=== PATIENT | male | born 1965 | race Caucasian/White ===

== ENCOUNTER 2016-03-12 19:28 | Inpatient (IN) | payer OTHER ==
[2016-03-12 19:37] VITALS: BMI 32.3
[2016-03-12] MEDS ORDERED: ASPIRIN 81 MG CHEWABLE TABLETS PO ONE (20:34)
--- NOTE | 2016-03-12 20:34 | PDOC ---
History of Present Illness <Kem Verduzco - Last Filed: 03/12/16 20:40> - General History Source: Patient Exam Limitations: No Limitations <Pratima Cruz - Last Filed: 03/12/16 22:34> - General Chief Complaint: Chest Pain Stated Complaint: CHEST PAIN - History of Present Illness Initial Comments: 03/12/16 20:40 The patient is a 50 year old male with significant past medical history of [place], CAD, s/p cardiac stents x2 (4 years ago), and hyperlipidemia who presents to the ED with nonradiating left-sided chest pain that began around 1:30pm today. Patient describes chest pain as a pressure sensation, intermittent lasting about 5-10 minutes, with no exacerbating/alleviating factors. He also has complaints of difficulty breathing. Patient was at work earlier today when he developed left-sided chest pain. He states he did not take any medications for his symptoms. He denies diaphoresis, palpitations, jaw pain, shoulder pain, arm pain, nausea, and vomiting. The patient denies fever, chills, cough, abdominal pain, and diarrhea. 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 Current smoker (half pack per day) Past Surgical History: s/p cardiac stents x2 (4 years ago) PCP: Dr. Sotero Powell Cardio: Dr. Kem Goff (Pratima Cruz) Past History - Past Medical History Cardiac Disorders: Yes ([place]) Hypercholesterolemia: Yes - Surgical History Cardiac Surgery: Yes (STENTS) - Psycho/Social/Smoking Cessation Hx Suicidal Ideation: No Smoking History: Current every day smoker Number of Cigarettes Smoked Daily: 10 Information on smoking cessation initiated: No Hx Alcohol Use: No Drug/Substance Use Hx: No <Kem Verduzco - Last Filed: 03/12/16 20:40> <Pratima Cruz - Last Filed: 03/12/16 22:34> - Past Medical History Allergies/Adverse Reactions: Allergies Allergy/AdvReac Type Severity Reaction Status Date / Time No Known Allergies Allergy Verified 03/12/16 19:34 Home Medications: Ambulatory Orders Aspirin [ASA -] 81 mg PO DAILY 03/12/16 Ezetimibe [Zetia] 10 mg PO DAILY 03/12/16 Review of Systems <Kem Verduzco - Last Filed: 03/12/16 20:40> - Review of Systems Able to Perform ROS?: Yes <Pratima Cruz - Last Filed: 03/12/16 22:34> - Review of Systems Comments:: 03/12/16 20:41 +left-sided chest pain, SOB Absent: fever, chills, cough, diaphoresis, palpitations, jaw pain, shoulder pain , arm pain, abdominal pain, nausea, vomiting, and diarrhea (Pratima Cruz) *Physical Exam <Kem Verduzco - Last Filed: 03/12/16 20:40> <Pratima Cruz - Last Filed: 03/12/16 22:34> - Vital Signs Last Vital Signs Temp Pulse Resp BP Pulse Ox 97.5 F L 87 14 146/115 95 03/12/16 19:35 03/12/16 19:35 03/12/16 19:35 03/12/16 19:35 03/12/16 19:35 - Physical Exam Comments: 03/12/16 20:41 GENERAL: Well developed, well nourished. Awake and alert. No acute distress. HEENT: Normocephalic, atraumatic. PERRLA, EOMI. No conjunctival pallor. Sclera are non- icteric. Moist mucous membranes. Oropharynx is clear. NECK: Supple. Full ROM. No JVD. Carotid pulses 2+ and symmetric, without bruits. No thyromegaly. No lymphadenopathy. CARDIOVASCULAR: Regular rate and rhythm. No murmurs, rubs, or gallops. PULMONARY: No evidence of respiratory distress. Lungs clear to auscultation bilaterally. No wheezing, rales or rhonchi. ABDOMINAL: Soft. Non-tender. Non-distended. No rebound or guarding. No organomegaly. Normoactive bowel sounds. MUSCULOSKELETAL Normal range of motion at all joints. No bony deformities or tenderness. No CVA tenderness. EXTREMITIES: No cyanosis. No clubbing. No edema. No calf tenderness. SKIN: Warm and dry. Normal capillary refill. No rashes. No jaundice. NEUROLOGICAL: Alert, awake, appropriate. Cranial nerves 2-12 intact. Moving all extremities. No focal neurological deficits. PSYCHIATRIC: Cooperative. Good eye contact. Appropriate mood and affect. (Pratima Cruz) Heart Score/ECG Review <Kem Verduzco - Last Filed: 03/12/16 20:40> <Pratima Cruz - Last Filed: 03/12/16 22:34> - ECG Impressions Comment:: 03/12/16 20:41 NSR @88bpm Nonspecific ST and T wave abnormality Abnormal ECG (Pratima Cruz) ED Treatment Course - LABORATORY CBC & Chemistry Diagram: 03/12/16 20:40 03/12/16 20:40 <Pratima Cruz - Last Filed: 03/12/16 22:34> - Medications Given in the ED: ED Medications Discontinued Medications Generic Name Dose Route Start Last Admin Trade Name Johnson PRN Reason Stop Dose Admin Aspirin 162 mg 03/12/16 20:34 03/12/16 20:46 Asa - PO 03/12/16 20:35 162 mg ONCE ONE Administration Metoprolol Succinate 50 mg 03/12/16 20:44 03/12/16 20:54 Toprol Xl - PO 03/12/16 20:45 50 mg ONCE ONE Administration Medical Decision Making <Kem Verduzco - Last Filed: 03/12/16 20:40> <Pratima Cruz - Last Filed: 03/12/16 22:34> - Medical Decision Making 03/12/16 20:31 Patient's case was discussed with Dr. Mitchell Mcgill at 20:31 (Pratima Cruz) *DC/Admit/Observation/Transfer - Discharge Dispostion Admit: Yes <Kem Verduzco - Last Filed: 03/12/16 20:40> <Pratima Cruz - Last Filed: 03/12/16 22:34> Diagnosis at time of Disposition: ACS (acute coronary syndrome) - Discharge Dispostion Condition at time of disposition: Stable - Referrals - Attestations Scribe Attestion: 03/12/16 20:42 Documentation prepared by Pratima Cruz, acting as medical assistant per diem for eKm Verduzco MD (Pratima Cruz)
[2016-03-12] MEDS ORDERED: METOPROLOL SUCCINATE 50 MG TAB.SR.24H (FP) PO ONE (20:44)
[2016-03-12] MEDS ORDERED: SODIUM CHLORIDE 1,000 ML IV SCH (20:45)
[2016-03-12] MEDS ORDERED: ASPIRIN 81 MG CHEWABLE TABLETS ONE (20:45)
[2016-03-12] MEDS ORDERED: METOPROLOL SUCCINATE 50 MG TAB.SR.24H (FP) ONE (20:46)
[2016-03-12] MEDS ORDERED: ACETAMINOPHEN 325 MG TABLET (FP) PO PRN (20:46)
[2016-03-12 20:49] LABS: BASOPHIL 1.9 % (0-2.0); EOSINOPHIL 3.9 % (0-4.5); MCH 29.3 pg (25.7-33.7); MEAN CELL VOLUME 86.2 fl (80-96); MEAN PLT VOLUME 8.8 fl (7.5-11.1); NEUTROPHILS 64.9 % (42.8-82.8); PLATELET COUNT 227 K/MM3 (134-434); WHITE BLOOD COUNT 9.2 K/mm3 (4.0-10.0)
[2016-03-12 20:50] LABS: URINE APPEARANCE CLEAR; URINE BILIRUBIN NEGATIVE (NEGATIVE); URINE COLOR LTYELLOW; URINE GLUCOSE (UA) NEGATIVE (NEGATIVE); URINE KETONE NEGATIVE (NEGATIVE); URINE NITRITE NEGATIVE (NEGATIVE); URINE PROTEIN NEGATIVE (NEGATIVE); URINE UROBILINOGEN NEGATIVE E.U./dl (0.2-1.0)
[2016-03-12 20:52] LABS: URINE BLOOD 1+ (NEGATIVE); URINE LEUK ESTERASE TRACE (NEGATIVE)
[2016-03-12 20:53] LABS: URINE MUCUS RARE; URINE RBC 1 /hpf (0-3); URINE WBC 18 /hpf (3-5)
[2016-03-12 21:00] LABS: INR 0.93 (0.82-1.09); PROTHROMBIN TIME (PATIENT) 10.2 SEC (9.98-11.88)
[2016-03-12 21:27] LABS: ALBUMIN 3.8 g/dl (3.4-5.0); ANION GAP 7 (8-16); BILIRUBIN,TOTAL 0.4 mg/dL (0.2-1.0); CALCIUM 8.4 mg/dL (8.5-10.1); CHOLESTEROL 245 mg/dL (50-200); CO2 26 mmol/L (21-32); CREATININE 0.9 mg/dL (0.7-1.3); GLUCOSE,RANDOM 96 mg/dL (74-106); LDL CHOLESTEROL (ONLY SJRH) 170 mg/dL (5-100); MAGNESIUM 2.1 mg/dL (1.8-2.4); SGOT/AST 19 U/L (15-37); SGPT/ALT 49 U/L (12-78); TOT PROT 6.9 g/dl (6.4-8.2)
[2016-03-12 21:30] LABS: ALK PHOS 111 U/L (45-117); TROPONIN I < 0.02 ng/ml (0.00-0.05)
[2016-03-13 04:58] LABS: TROPONIN I < 0.02 ng/ml (0.00-0.05)
[2016-03-13 08:44] LABS: TROPONIN I < 0.02 ng/ml (0.00-0.05)
[2016-03-13] MEDS ORDERED: ASPIRIN COATED 81 MG TABLET.EC PO SCH (10:00)
[2016-03-13] MEDS ORDERED: EZETIMIBE 10 MG TABLET (FP) PO SCH (10:00)
--- NOTE | 2016-03-13 11:03 | HP ---
Admitting History and Physical - Admission Chief Complaint: came in with chest heaviness while working History of Present Illness: 03/12/16 20:40 The patient is a 50 year old male with significant past medical history of [place], CAD, s/p cardiac stents x2 (4 years ago), and hyperlipidemia who presents to the ED with nonradiating left-sided chest pain that began around 1:30pm today. Patient describes chest pain as a pressure sensation, intermittent lasting about 5-10 minutes, with no exacerbating/alleviating factors. He also has complaints of difficulty breathing. Patient was at work earlier today when he developed left-sided chest pain. He states he did not take any medications for his symptoms. He denies diaphoresis, palpitations, jaw pain, shoulder pain, arm pain, nausea, and vomiting. The patient denies fever, chills, cough, abdominal pain, and diarrhea. 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 Sotero Powell Cardio: Dr. Kem Goff in ER EKG no st t wave changes,CE 3 sets negative, high BP got metoprolol succinate one dose patient was on BB but stopped it bc of possible sexual dysfunction and was on crestor was stopped sec to aches and myalgias but he has been able to tolerate lipitor in the past veronica restart liptior given lipd profile and will start norvasc 5mg daily hd a recent stress test with cardioligist which was good seen by cardioligist and adivsed to stop smoking restart lipitor and start norvasc History Source: Patient - Past Medical History Cardiovascular: Yes: CAD, HTN, Hyperlipdemia, MD - Smoking History Smoking history: Current every day smoker Aproximately how many cigarettes per day: 10 - Alcohol/Substance Use Hx Alcohol Use: No Home Medications - Allergies Allergies/Adverse Reactions: Allergies Allergy/AdvReac Type Severity Reaction Status Date / Time No Known Allergies Allergy Verified 03/12/16 19:34 - Home Medications Home Medications: Ambulatory Orders Aspirin [ASA -] 81 mg PO DAILY 03/12/16 Ezetimibe [Zetia] 10 mg PO DAILY 03/12/16 Review of Systems - Review of Systems HENT: reports: No Symptoms Neck: reports: No Symptoms Cardiovascular: reports: No Symptoms Respiratory: reports: No Symptoms Gastrointestinal: reports: No Symptoms Physical Examination Vital Signs: Vital Signs Temperature 97.7 F 03/13/16 09:02 Pulse Rate 75 03/13/16 09:02 Respiratory Rate 18 03/13/16 09:02 Blood Pressure 139/90 03/13/16 09:02 O2 Sat by Pulse Oximetry (%) 97 03/13/16 09:02 Constitutional: Yes: Calm Neck: Yes: Trachea Midline Cardiovascular: Yes: Regular Rate and Rhythm, S1, S2 Respiratory: Yes: CTA Bilaterally Gastrointestinal: Yes: Normal Bowel Sounds, Soft Edema: No Neurological: Yes: Alert, Oriented Labs: CBC, BMP 03/12/16 20:40 03/12/16 20:40 Imaging - Results EKG: Report Reviewed, Image Reviewed Problem List - Problems (1) ACS (acute coronary syndrome) Assessment/Plan: CE 3 sets negative restart lipitor norvasc for BP control no BB bc of side effects asa seen by cardidilogist ok for discharge Code(s): I24.9 - ACUTE ISCHEMIC HEART DISEASE, UNSPECIFIED (2) Hyperlipidemia Assessment/Plan: statin and zetia Code(s): E78.5 - HYPERLIPIDEMIA, UNSPECIFIED
--- NOTE | 2016-03-13 11:12 | DS ---
Physical Examination Vital Signs: Vital Signs Temperature 97.7 F 03/13/16 09:02 Pulse Rate 75 03/13/16 09:02 Respiratory Rate 18 03/13/16 09:02 Blood Pressure 139/90 03/13/16 09:02 O2 Sat by Pulse Oximetry (%) 97 03/13/16 09:02 Constitutional: Yes: Calm Neck: Yes: Trachea Midline Cardiovascular: Yes: Regular Rate and Rhythm, S1, S2 Respiratory: Yes: CTA Bilaterally Gastrointestinal: Yes: Normal Bowel Sounds, Soft Edema: No Neurological: Yes: Alert, Oriented Labs: CBC, BMP 03/12/16 20:40 03/12/16 20:40 Discharge Summary Reason For Visit: CHEST PAIN Current Active Problems ACS (acute coronary syndrome) (Acute) Hyperlipidemia (Acute) Hospital Course: Chief Complaint: came in with chest heaviness while working History of Present Illness: 03/12/16 20:40 The patient is a 50 year old male with significant past medical history of [place], CAD, s/p cardiac stents x2 (4 years ago), and hyperlipidemia who presents to the ED with nonradiating left-sided chest pain that began around 1:30pm today. Patient describes chest pain as a pressure sensation, intermittent lasting about 5-10 minutes, with no exacerbating/alleviating factors. He also has complaints of difficulty breathing. Patient was at work earlier today when he developed left-sided chest pain. He states he did not take any medications for his symptoms. He denies diaphoresis, palpitations, jaw pain, shoulder pain, arm pain, nausea, and vomiting. The patient denies fever, chills, cough, abdominal pain, and diarrhea. 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 Sotero Powell Cardio: Dr. 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
[2016-03-13 11:38] VITALS: BP 124/77; PULSE 72; TEMP 98.1
--- NOTE | 2016-03-13 12:49 | EKG ---
Test Reason : Blood Pressure : / mmHG Vent. Rate : 088 BPM Atrial Rate : 088 BPM P-R Int : 160 ms QRS Dur : 096 ms QT Int : 360 ms P-R-T Axes : 000 025 022 degrees QTc Int : 435 ms NORMAL SINUS RHYTHM NONSPECIFIC ST AND T WAVE ABNORMALITY ABNORMAL ECG NO PREVIOUS ECGS AVAILABLE Confirmed by LEE ANN HENRIQUEZ MD ([id number]) on 03/13/2016 12:49:12 PM Referred By: Confirmed By:LEE ANN HENRIQUEZ MD
[2016-03-13] MEDS ORDERED: ATORVASTATIN CA 40 MG TABLET (FP) PO SCH (22:00)
[2016-03-14] MEDS ORDERED: amLODIPine BESYLATE 5 MG TABLET (FP) PO SCH (10:00)
== END 2016-03-13 11:39 | disposition home or self-care (01) | DRG 313 ==
LOC: JER 19:28 → JERBED 20:39
PROVIDERS: ADMIT Family Medicine; ATTEND Family Medicine
DX: R07.9 Chest pain, unspecified (principal); I25.10 Atherosclerotic heart disease of native coronary artery without angina pectoris; I25.2 Old myocardial infarction; E78.5 Hyperlipidemia, unspecified; F17.210 Nicotine dependence, cigarettes, uncomplicated
CPT/HCPCS: 36415; 71020-TC; 80053; 80061; 81003; 81015; 82550; 83721; 83735; 84484; 85025; 85610; 93005; 93010; 99285-25

== ENCOUNTER 2018-05-01 14:59 | Observation (INO) | payer OTHER ==
--- NOTE | 2018-05-01 15:31 | PDOC ---
Rapid Medical Evaluation Time Seen by Provider: 05/01/18 15:30 Medical Evaluation: Allergies Allergy/AdvReac Type Severity Reaction Status Date / Time No Known Allergies Allergy Verified 03/12/16 19:34 05/01/18 15:30 I performed a brief in-person evaluation of this patient. Chief complaint: Vertigo, dizziness (ongoing), syncope (last week). Hx CAD s/p stents at [facility] 2013, HTN, HLD, current smoker. Sent by Dr. Powell for admission. I have ordered the following: EKG, cardiac labs, CXR, CT brain Patient will proceed to the ED for further evaluation. 05/01/18 15:32 Discharge Disposition - Diagnosis Dizziness - Referrals - Patient Instructions - Post Discharge Activity
[2018-05-01 15:34] VITALS: BMI 30.8
[2018-05-01 16:11] LABS: BASO % 0.6 % (0-2.0); EOS % 3.8 % (0-4.5); HEMATOCRIT 43.9 % (35.4-49); HEMOGLOBIN 15.3 GM/dL (11.7-16.9); LYMPH % 19.9 % (8-40); MCH 30.5 pg (25.7-33.7); MCHC 34.9 g/dl (32.0-35.9); MEAN CELL VOLUME 87.3 fl (80-96); MEAN PLT VOLUME 8.5 fl (7.5-11.1); MONO % 7.7 % (3.8-10.2); PLATELET COUNT 210 K/MM3 (134-434); RBC 5.02 M/mm3 (4.00-5.60); RDW 13.5 % (11.9-15.9)
[2018-05-01 16:44] LABS: INR 0.89 (0.83-1.09); PROTHROMBIN TIME (PATIENT) 10.5 SEC (9.7-13.0)
[2018-05-01 16:46] LABS: ALBUMIN 3.6 g/dl (3.4-5.0); ALK PHOS 95 U/L (45-117); ANION GAP 5 MMOL/L (8-16); BILIRUBIN,TOTAL 0.4 mg/dL (0.2-1); BLOOD UREA NITROGEN 24 mg/dL (7-18); CALCIUM 9.2 mg/dL (8.5-10.1); CHLORIDE 104 mmol/L (98-107); CO2 26 mmol/L (21-32); CREATININE 1.1 mg/dL (0.55-1.3); GLUCOSE,RANDOM 86 mg/dL (74-106); POTASSIUM 3.9 mmol/L (3.5-5.1); SGOT/AST 16 U/L (15-37); SGPT/ALT 49 U/L (13-61); SODIUM 136 mmol/L (136-145); TOT PROT 6.8 g/dl (6.4-8.2)
--- NOTE | 2018-05-01 19:09 | PDOC ---
History of Present Illness - General Chief Complaint: Lightheaded Stated Complaint: SEND BY PCP Time Seen by Provider: 05/01/18 15:30 - History of Present Illness Initial Comments: 05/01/18 19:08 Mr. Swain is a 52 yo male w/ pmh of HTN, HLD, Prior stents ([facility] 2013) on asa only, who presents for evaluation on advice of his PCP Dr. Powell. Patient reports he has had 1 month history of intermittent dizziness with occasional muscle cramping. Patient became concerned when he had a syncopal episode last week. Patient was instructed to present to ER for admission by PCP however patient has been unable to do so until now. He otherwise feels well at this time. Mr. Swain is a current smoker. The patient denies chest pain, shortness of breath, and headache. Denies fever, chills, nausea, vomit, diarrhea and constipation. Denies dysuria, frequency, urgency and hematuria. Past History - Past Medical History Allergies/Adverse Reactions: Allergies Allergy/AdvReac Type Severity Reaction Status Date / Time No Known Allergies Allergy Verified 05/01/18 15:34 Home Medications: Ambulatory Orders Aspirin [ASA -] 81 mg PO DAILY 03/12/16 Losartan/Hydrochlorothiazide [Losartan-Hctz 100-12.5 mg Tab] 1 each PO DAILY Metoprolol Succinate [Toprol Xl] 25 mg PO DAILY 05/01/18 Simvastatin [Zocor -] 40 mg PO DAILY 05/01/18 Cardiac Disorders: Yes ([place], 2 STENTS) COPD: No HTN: Yes Hypercholesterolemia: Yes - Surgical History Cardiac Surgery: Yes (STENTS) - Immunization History Immunization Up to Date: Yes - Suicide/Smoking/Psychosocial Hx Smoking History: Current every day smoker Have you smoked in the past 12 months: Yes Number of Cigarettes Smoked Daily: 10 Information on smoking cessation initiated: No Hx Alcohol Use: No Drug/Substance Use Hx: No Review of Systems - Review of Systems Comments:: 05/01/18 19:41 GENERAL/CONSTITUTIONAL: No fever or chills. No weakness. HEAD, EYES, EARS, NOSE AND THROAT: No change in vision. No ear pain or discharge. No sore throat. CARDIOVASCULAR: No chest pain or shortness of breath RESPIRATORY: No cough, wheezing, or hemoptysis. GASTROINTESTINAL: No nausea, vomiting, diarrhea or constipation. GENITOURINARY: No dysuria, frequency, or change in urination. MUSCULOSKELETAL: No joint or muscle swelling or pain. No neck or back pain. SKIN: No rash NEUROLOGIC: +Intermittent lightheaded "not right" feeling for 1 month. Patient reports he lost strength and almost passed out 1 time 1 week ago. No headache, or vertigo. ENDOCRINE: No increased thirst. No abnormal weight change HEMATOLOGIC/LYMPHATIC: No anemia, easy bleeding, or history of blood clots. ALLERGIC/IMMUNOLOGIC: No hives or skin allergy. *Physical Exam - Vital Signs Last Vital Signs Temp Pulse Resp BP Pulse Ox 97.8 F 85 18 138/97 98 05/01/18 15:30 05/01/18 15:30 05/01/18 15:30 05/01/18 15:30 05/01/18 15:30 - Physical Exam Comments: 05/01/18 19:41 GENERAL: Awake, alert, and fully oriented, in no acute distress HEAD: No signs of trauma, normocephalic, atraumatic EYES: PERRLA, EOMI, sclera anicteric, conjunctiva clear ENT: Auricles normal inspection, hearing grossly normal, nares patent, oropharynx clear without exudates. Moist mucosa NECK: Normal ROM, supple, no lymphadenopathy, JVD, or masses LUNGS: No distress, speaks full sentences, clear to auscultation bilaterally HEART: Regular rate and rhythm, normal S1 and S2, no murmurs, rubs or gallops, peripheral pulses normal and equal bilaterally. ABDOMEN: Soft, nontender, normoactive bowel sounds. No guarding, no rebound. No masses EXTREMITIES: Normal inspection, Normal range of motion, no edema. No clubbing or cyanosis. NEUROLOGICAL: Cranial nerves II through XII grossly intact. Normal speech, normal gait, no focal sensorimotor deficits SKIN: Warm, Dry, normal turgor, no rashes or lesions noted. Moderate Sedation - Procedure Monitoring Vital Signs: Procedure Monitoring Vital Signs Temperature 97.8 F 05/01/18 15:30 Pulse Rate 85 05/01/18 15:30 Respiratory Rate 18 05/01/18 15:30 Blood Pressure 138/97 05/01/18 15:30 O2 Sat by Pulse Oximetry (%) 98 05/01/18 15:30 Heart Score/ECG Review - History History: Highly suspicious - Electrocardiogram EKG: Normal - Age Age: 45-65 - Risk Factors Risk Factors Heart Score: Yes Hx Hypercholesterolemia, Yes Hx Hypertension, Yes Smoking History Based on the list above the patient has:: >/=3 risk factors or Hx atherosclerotic disease - Troponin Troponin: </= normal limit - Score Heart Score - Total: 5 ED Treatment Course - LABORATORY CBC & Chemistry Diagram: 05/01/18 15:47 05/01/18 15:51 - ADDITIONAL ORDERS Additional order review: Laboratory Results 05/01/18 05/01/18 15:51 15:51 PT with INR 10.50 INR 0.89 Sodium 136 Potassium 3.9 Chloride 104 Carbon Dioxide 26 Anion Gap 5 L BUN 24 H Creatinine 1.1 Creat Clearance w eGFR 70.02 Random Glucose 86 Calcium 9.2 Total Bilirubin 0.4 AST 16 ALT 49 Alkaline Phosphatase 95 Creatine Kinase 207 Creatine Kinase Index 1.4 CK-MB (CK-2) 3.1 Troponin I < 0.02 Total Protein 6.8 Albumin 3.6 05/01/18 15:47 RBC 5.02 MCV 87.3 MCHC 34.9 RDW 13.5 MPV 8.5 Neutrophils % 68.0 Lymphocytes % 19.9 Monocytes % 7.7 Eosinophils % 3.8 Basophils % 0.6 Medical Decision Making - Medical Decision Making 05/01/18 19:42 Mr. Swain is a 52 yo male w/ pmh as described who presents for evaluation of symptoms concerning for electrolyte imbalance vs. cardiac process vs. neurological process. Labs and CT previously ordered non-contributory (CT negative for acute process, labs grossly wnl as below). Will admit patient for tele-observation overnight and further cardiology workup. EKG normal. Laboratory Results - last 24 hr 05/01/18 05/01/18 05/01/18 15:47 15:51 15:51 WBC 7.0 RBC 5.02 Hgb 15.3 Hct 43.9 MCV 87.3 MCH 30.5 MCHC 34.9 RDW 13.5 Plt Count 210 MPV 8.5 Absolute Neuts (auto) 4.8 Neutrophils % 68.0 Lymphocytes % 19.9 Monocytes % 7.7 Eosinophils % 3.8 Basophils % 0.6 Nucleated RBC % 0 PT with INR 10.50 INR 0.89 Sodium 136 Potassium 3.9 Chloride 104 Carbon Dioxide 26 Anion Gap 5 L BUN 24 H Creatinine 1.1 Creat Clearance w eGFR 70.02 Random Glucose 86 Calcium 9.2 Total Bilirubin 0.4 AST 16 ALT 49 Alkaline Phosphatase 95 Creatine Kinase 207 Creatine Kinase Index 1.4 CK-MB (CK-2) 3.1 Troponin I < 0.02 Total Protein 6.8 Albumin 3.6 *DC/Admit/Observation/Transfer Diagnosis at time of Disposition: Dizziness - Discharge Dispostion Decision to Admit order: Yes - Referrals Referrals: Sotero Powell MD [Primary Care Provider] - - Patient Instructions - Post Discharge Activity
--- NOTE | 2018-05-01 19:23 | PDOC ---
Attending Attestation - HPI HPI: 05/01/18 19:31 The patient is a 52 year old male, with a significant past medical history of CAD (s/p AL and cardiac stenting x2), HTN, and HLD, who presents to the emergency department for admission from Dr. Powell. Patient notes he has been feel off and describes it as lightheadedness, last week he notes having an episode of near-syncope. Patient endorses telling his PCP Dr. Powell who advised him to report to the ED for further evaluation. He denies any recent fevers or chills. He denies any recent nausea, vomit, diarrhea or constipation. He denies any recent chest pain or shortness of breath. He denies any recent dysuria, frequency, urgency or hematuria. Allergies: NKDA Past surgical history: Cardiac stenting. Primary Care Physician: Dr. Sotero Powell <Maria Esther Carmona - Last Filed: 05/01/18 19:30> - Resident Resident Name: Yehuda Juarez - ED Attending Attestation I have performed the following: I have examined & evaluated the patient, The case was reviewed & discussed with the resident, I agree w/resident's findings & plan, Exceptions are as noted - Physicial Exam PE: 05/01/18 19:57 GENERAL: Well-appearing, well-nourished. No apparent distress. HEENT: Normocephalic, atraumatic. PERRL, EOM intact. CARDIOVASCULAR: Normal S1, S2. Regular rate and rhythm. PULMONARY: Clear to auscultation bilaterally. ABDOMEN: Soft, non-distended, non-tender. EXTREMITIES: Normal ROM in all four extremities. No gross deformities. SKIN: Warm, dry. No rash NEUROLOGICAL: No focal neurological deficits. - Medical Decision Making 05/01/18 19:57 Patient describes several episodes of lightheadedness, not room spinning dizziness over the past several weeks with an episode of syncope last week. Vasovagal, neurogenic pathology less likely, given cardiac hx, concerning for new or re-aggravation of existing cardiac pathology f/u labs, trend enzymes, serial ekg admit tele 05/01/18 21:12 Labs unremarkable CE neg x1 EKG non-ischemic <Edson Leo - Last Filed: 05/01/18 21:12> Attestations - Attestations 05/01/18 19:31 Documentation prepared by Maria Esther Carmona, acting as medical territory manager for Edson Leo MD. <Maria Esther Carmona - Last Filed: 05/01/18 19:30>
[2018-05-01 19:47] LABS: URINE APPEARANCE CLEAR; URINE BILIRUBIN NEGATIVE (<2.0 mg/dL); URINE COLOR LTYELLOW; URINE GLUCOSE (UA) NEGATIVE (NEGATIVE); URINE KETONE NEGATIVE (NEGATIVE); URINE LEUK ESTERASE NEGATIVE (NEGATIVE); URINE NITRITE NEGATIVE (NEGATIVE); URINE PROTEIN NEGATIVE (NEGATIVE); URINE UROBILINOGEN NEGATIVE mg/dL (0.2-1.0)
[2018-05-01] MEDS ORDERED: DOCUSATE SODIUM 100 MG CAPSULE (FP) PO PRN (22:57)
[2018-05-01] MEDS ORDERED: ACETAMINOPHEN 325 MG TABLET (FP) PO PRN (22:57)
[2018-05-01] MEDS ORDERED: SENNOSIDES 8.6MG TABLET (FP) PO PRN (22:57)
--- NOTE | 2018-05-01 23:13 | HP ---
Admitting History and Physical - Primary Care Physician PCP: Sotero Powell - Admission Chief Complaint: dizziness, pre-syncope History of Present Illness: 52 year old M with h/o CAD s/p PCI, and HLD presents to ED for evaluation of intermittent dizziness and near syncope over the last 3 weeks. Mr. Sanchez reports a slow onset of bouts of dizziness where he would feel unsteady on his feet and experience near syncope. He has never lost consciousness and denies chest pain, SOB, N/V/CHRISTIANSON/Fever/Chills/visual disturbance or neuro deficits. PT was evaluated by PCP who adjusted his metoprolol and statin which did not improve his symptoms. Two weeks ago, pt was recommended to visit ED for urgent evaluation, but did not follow through. Due to progressive symptoms, he presented to ED today, once again at the recommendation of his PCP after he visited office for second evaluation. In ED: BP 138/97, HR 75bpm, T 97.7, RR 18, O2 sat 97 (RA). Labs unremarkable EKG non-ischemic Head CT: no acute findings. Decision made to admit pt for observation. Healthcare providers: PCP: Dr. Sotero Powell Cardio: Dr. 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 Other Social History: HCP"Alley Peters [phone] Home Medications - Allergies Allergies/Adverse Reactions: Allergies Allergy/AdvReac Type Severity Reaction Status Date / Time No Known Allergies Allergy Verified 05/01/18 15:34 - Home Medications Home Medications: Ambulatory Orders Aspirin [ASA -] 81 mg PO DAILY 03/12/16 Losartan/Hydrochlorothiazide [Losartan-Hctz 100-12.5 mg Tab] 1 each PO DAILY Metoprolol Succinate [Toprol Xl] 25 mg PO DAILY 05/01/18 Simvastatin [Zocor -] 40 mg PO DAILY 05/01/18 Family Disease History - Family Disease History Family Disease History: Other: Grandparent (Maternal GM (74) HLD, [place]), Father (unknown), Mother (alive (74) HTN, HLD), Sister (alive (51) s/p renal txplt) Review of Systems - Review of Systems Constitutional: reports: No Symptoms Eyes: reports: No Symptoms HENT: reports: No Symptoms Neck: reports: No Symptoms Cardiovascular: reports: No Symptoms Respiratory: reports: No Symptoms Gastrointestinal: reports: No Symptoms Genitourinary: reports: No Symptoms Breasts: reports: No Symptoms Reported Musculoskeletal: reports: No Symptoms Integumentary: reports: No Symptoms Neurological: reports: Dizziness, Other (pre-syncope) Endocrine: reports: No Symptoms Hematology/Lymphatic: reports: No Symptoms Psychiatric: reports: No Symptoms Physical Examination Vital Signs: Vital Signs Temperature 97.8 F 05/01/18 15:30 Pulse Rate 85 05/01/18 15:30 Respiratory Rate 18 05/01/18 15:30 Blood Pressure 138/97 05/01/18 15:30 O2 Sat by Pulse Oximetry (%) 98 05/01/18 15:30 Constitutional: Yes: Well Nourished Eyes: Yes: Conjunctiva Clear, EOM Intact, PERRL HENT: Yes: Atraumatic, Normocephalic Neck: Yes: Supple, Trachea Midline Cardiovascular: Yes: Regular Rate and Rhythm Respiratory: Yes: Regular, CTA Bilaterally Gastrointestinal: Yes: Normal Bowel Sounds, Soft ...Rectal Exam: Yes: Deferred Musculoskeletal: Yes: WNL Extremities: Yes: WNL Edema: No Peripheral Pulses WNL: Yes Peripheral Pulses: Left Radial: 2+, Right Radial: 2+ Integumentary: Yes: WNL Neurological: Yes: Alert, Oriented, Cran Nerves II-XII Intact ...Motor Strength: WNL Psychiatric: Yes: Alert, Oriented Labs: CBC, BMP 05/01/18 15:47 05/01/18 15:51 Imaging - Results Cat Scan: Report Reviewed (Head CT 05/01: no evidence of acute intracranial pathology. Left maxillary sinus demonstrates midfocal indentation along the posterior lateral wall which could be on a postr-traumatic basis. A small amount of hyperdense material within the left maxillary sinus abutting the posterior wall possibly representing mucosal thickening versus soft tissue.) Problem List - Problems (1) CAD (coronary artery disease) Assessment/Plan: resume home meds: asa, metoprolol simvastatin NF, start lipitor cardiac diet Code(s): I25.10 - ATHSCL HEART DISEASE OF [place] CORONARY ARTERY W/O ANG PCTRS (2) Dizziness Assessment/Plan: observe on tele x 24hrs echo and carotid dopplers ordered cards consult pt may need outpt neuro consult Head CT with maxillary sinus disease, follow paranasal sinus CT study recommended. Pt can mostly perform on outpt basis. neuro check qshift Code(s): R42 - DIZZINESS AND GIDDINESS (3) Hyperlipidemia Assessment/Plan: continue statin Code(s): E78.5 - HYPERLIPIDEMIA, UNSPECIFIED Assessment/Plan bowel regimen with PRN senna/colace HTN: losartan DISPO: Full code Visit type - Emergency Visit Emergency Visit: Yes ED Registration Date: 05/01/18 Care time: The patient presented to the Emergency Department on the above date and was hospitalized for further evaluation of their emergent condition. - New Patient This patient is new to me today: Yes Date on this admission: 05/01/18 - Critical Care Critical Care patient: No
[2018-05-02 05:50] LABS: BASO % 0.6 % (0-2.0); EOS % 5.4 % (0-4.5); HEMOGLOBIN 14.8 GM/dL (11.7-16.9); LYMPH % 20.1 % (8-40); MCHC 34.5 g/dl (32.0-35.9); MEAN CELL VOLUME 86.9 fl (80-96); MEAN PLT VOLUME 8.4 fl (7.5-11.1); NEUT % 66.9 % (42.8-82.8); PLATELET COUNT 193 K/MM3 (134-434); RBC 4.94 M/mm3 (4.00-5.60); RDW 13.5 % (11.9-15.9); WHITE BLOOD COUNT 5.3 K/mm3 (4.0-10.0)
[2018-05-02 06:20] LABS: ANION GAP 5 MMOL/L (8-16); BLOOD UREA NITROGEN 17 mg/dL (7-18); CALCIUM 8.5 mg/dL (8.5-10.1); CHLORIDE 107 mmol/L (98-107); CO2 26 mmol/L (21-32); CREATININE 0.9 mg/dL (0.55-1.3); GLUCOSE,RANDOM 119 mg/dL (74-106); MAGNESIUM 2.2 mg/dL (1.8-2.4); PHOSPHOROUS 4.2 mg/dL (2.5-4.9); POTASSIUM 4.1 mmol/L (3.5-5.1); SODIUM 139 mmol/L (136-145)
--- NOTE | 2018-05-02 08:41 | CON.CARD ---
Consult Consult Specialty:: Cardiology Reason for Consultation:: dizziness - History of Present Illness History of Present Illness: 52 year old M with h/o CAD s/p PCI, and HLD presents to ED for evaluation of intermittent dizziness and near syncope over the last 3 weeks. Mr. Sanchez reports a slow onset of bouts of dizziness where he would feel unsteady on his feet and experience near syncope. He has never lost consciousness and denies chest pain, SOB, N/V/CHRISTIANSON/Fever/Chills/visual disturbance or neuro deficits. PT was evaluated by PCP who adjusted his metoprolol and statin which did not improve his symptoms. Two weeks ago, pt was recommended to visit ED for urgent evaluation, but did not follow through. Due to progressive symptoms, he presented to ED today, once again at the recommendation of his PCP after he visited office for second evaluation. In ED: BP 138/97, HR 75bpm, T 97.7, RR 18, O2 sat 97 (RA). Labs unremarkable EKG non-ischemic Head CT: no acute findings. Decision made to admit pt for observation. Healthcare providers: PCP: Dr. Sotero Powell Cardio: Dr. Kem Goff History Source: Patient Limitations to Obtaining History: No Limitations - History Source History Provided By: Patient, Medical Record - Past Medical History Cardio/Vascular: Yes: CAD, HTN, Hyperlipdemia, [place] - Past Surgical History Past Surgical History: Yes: None - Alcohol/Substance Use Hx Alcohol Use: No (4 beers on fridays and saturdays) History of Substance Use: reports: None - Smoking History Smoking history: Current every day smoker Have you smoked in the past 12 months: Yes Aproximately how many cigarettes per day: 10 (2PPD x 29yrs, now down to 1/4PPD x 4yrs) - Social History ADL: Independent 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 Home Medications - Allergies Allergies/Adverse Reactions: Allergies Allergy/AdvReac Type Severity Reaction Status Date / Time No Known Allergies Allergy Verified 05/01/18 15:34 - Home Medications Home Medications: Ambulatory Orders Aspirin [ASA -] 81 mg PO DAILY 03/12/16 Losartan/Hydrochlorothiazide [Losartan-Hctz 100-12.5 mg Tab] 1 each PO DAILY Metoprolol Succinate [Toprol Xl] 25 mg PO DAILY 05/01/18 Simvastatin [Zocor -] 40 mg PO DAILY 05/01/18 Family Disease History - Family Disease History Family Disease History: Other: Grandparent (Maternal GM (74) HLD, [place]), Father (unknown), Mother (alive (74) HTN, HLD), Sister (alive (51) s/p renal txplt) Review of Systems - Review of Systems Constitutional: reports: No Symptoms Eyes: reports: No Symptoms HENT: reports: No Symptoms Neck: reports: No Symptoms Cardiovascular: reports: No Symptoms Gastrointestinal: reports: No Symptoms Genitourinary: reports: No Symptoms Breasts: reports: No Symptoms Reported Musculoskeletal: reports: No Symptoms Integumentary: reports: No Symptoms Neurological: reports: Dizziness Endocrine: reports: No Symptoms Hematology/Lymphatic: reports: No Symptoms Psychiatric: reports: No Symptoms Vital Signs: Vital Signs Temperature 97.8 F 05/01/18 15:30 Pulse Rate 86 05/02/18 06:44 Respiratory Rate 18 05/02/18 06:44 Blood Pressure 137/85 05/02/18 06:44 O2 Sat by Pulse Oximetry (%) 98 05/02/18 06:44 Constitutional: Yes: Well Nourished, No Distress, Calm Eyes: Yes: WNL, Conjunctiva Clear, EOM Intact HENT: Yes: WNL, Atraumatic, Normocephalic Neck: Yes: WNL, Supple, Trachea Midline Respiratory: Yes: WNL, Regular, CTA Bilaterally Gastrointestinal: Yes: WNL, Normal Bowel Sounds Renal/: Yes: WNL Cardiovascular: Yes: WNL, Regular Rate and Rhythm Musculoskeletal: Yes: WNL Extremities: Yes: WNL Integumentary: Yes: WNL Neurological: Yes: WNL, Alert, Oriented ...Motor Strength: WNL Psychiatric: Yes: WNL, Alert, Oriented - Other Data Labs, Other Data: CBC, BMP 05/02/18 05:15 05/02/18 05:15 INR, PTT INR 0.89 (0.83-1.09) 05/01/18 15:51 Troponin, BNP 05/01/18 05/02/18 15:51 05:15 Troponin I < 0.02 < 0.02 Troponin, BNP 05/01/18 05/02/18 15:51 05:15 Troponin I < 0.02 < 0.02 Imaging - Results Chest X-ray: Image Reviewed (wnl) EKG: Image Reviewed (wnl) Problem List - Problems (1) CAD (coronary artery disease) Code(s): I25.10 - ATHSCL HEART DISEASE OF [place] CORONARY ARTERY W/O ANG PCTRS (2) Dizziness Code(s): R42 - DIZZINESS AND GIDDINESS (3) ACS (acute coronary syndrome) Code(s): I24.9 - ACUTE ISCHEMIC HEART DISEASE, UNSPECIFIED (4) Hyperlipidemia Code(s): E78.5 - HYPERLIPIDEMIA, UNSPECIFIED Assessment/Plan 52 year old M with h/o CAD s/p PCI, and HLD presents to ED for evaluation of intermittent dizziness and near syncope over the last 3 weeks. Plan cardiac gill stable ekg /echo wnl cont telemetry increase Lipitor to 80 QHS w/u as per neuro/ c duplex pending will need mibi stress test - may be done as outp.
[2018-05-02] MEDS ORDERED: PATIENT'S OWN MEDICATION (NON-FORMULARY) (Losartan/Hydrochlorothiazide [Losartan-Hctz 100- PO SCH (10:00)
[2018-05-02] MEDS ORDERED: HYDROCHLOROTHIAZIDE 12.5 MG CAPSULE (FP) PO SCH (10:00)
[2018-05-02] MEDS ORDERED: ASPIRIN 81 MG CHEWABLE TABLETS ONE (10:15)
[2018-05-02] MEDS: ASPIRIN 81 MG CHEWABLE TABLETS PO SCH (10:26)
[2018-05-02] MEDS: metoPROLOL SUCCINATE 25 MG TAB.SR.24H (FP) PO SCH (10:26)
[2018-05-02] MEDS: LOSARTAN POTASSIUM 50 MG TABLET (FP) PO SCH (10:26)
--- NOTE | 2018-05-02 11:09 | EKG ---
Test Reason : Blood Pressure : / mmHG Vent. Rate : 075 BPM Atrial Rate : 075 BPM P-R Int : 152 ms QRS Dur : 098 ms QT Int : 362 ms P-R-T Axes : 019 050 034 degrees QTc Int : 404 ms NORMAL SINUS RHYTHM NORMAL ECG WHEN COMPARED WITH ECG OF 12-MAR-2016 19:40, NONSPECIFIC T WAVE ABNORMALITY NO LONGER EVIDENT IN LATERAL LEADS Confirmed by JASSON MICHELLE MD ([id number]) on 05/02/2018 11:09:33 AM Referred By: Confirmed By:JASSON MICHELLE MD
--- NOTE | 2018-05-02 11:13 | PN ---
Progress Note, Physician Chief Complaint: patient came in for spells of dizziness no LOC feeling unsteady ,has had episode of leg numbness left side and now has heel numbness no sob,no tinnitus,no nausea, no vomitting, no CHRISTIANSON no chest pain - Current Medication List Current Medications: Active Medications Acetaminophen (Tylenol -) 650 mg PO Q6H PRN PRN Reason: FEVER Aspirin (Asa -) 81 mg PO DAILY [facility] Last Admin: 05/02/18 10:26 Dose: 81 mg Atorvastatin Calcium (Lipitor -) 20 mg PO HS [facility] Docusate Sodium (Colace -) 100 mg PO Q8H PRN PRN Reason: CONSTIPATION Hydrochlorothiazide (Hctz -) 12.5 mg PO DAILY [facility] Last Admin: 05/02/18 10:26 Dose: 12.5 mg Losartan Potassium (Cozaar -) 100 mg PO DAILY [facility] Last Admin: 05/02/18 10:26 Dose: 100 mg Metoprolol Succinate (Toprol Xl -) 25 mg PO DAILY [facility] Last Admin: 05/02/18 10:26 Dose: 25 mg Senna (Senna -) 2 tab PO HS PRN PRN Reason: CONSTIPATION - Objective Vital Signs: Vital Signs Temperature 97.8 F 05/01/18 15:30 Pulse Rate 85 05/02/18 10:25 Respiratory Rate 16 05/02/18 10:25 Blood Pressure 148/94 05/02/18 10:25 O2 Sat by Pulse Oximetry (%) 96 05/02/18 10:25 Constitutional: Yes: Calm Cardiovascular: Yes: Regular Rate and Rhythm, S1, S2 Respiratory: Yes: CTA Bilaterally Gastrointestinal: Yes: Normal Bowel Sounds, Soft Edema: No Neurological: Yes: Alert, Oriented, Other (numbness on left heel) Labs: CBC, BMP 05/02/18 05:15 05/02/18 05:15 INR, PTT INR 0.89 (0.83-1.09) 05/01/18 15:51 Problem List - Problems (1) CAD (coronary artery disease) Assessment/Plan: aspirn,metoprolol, statin echo pending caridiology on board,2 sets ce negative Code(s): I25.10 - ATHSCL HEART DISEASE OF [place] CORONARY ARTERY W/O ANG PCTRS (2) Dizziness Assessment/Plan: ent ,neurology carotid doppler stop hctz lumbar sacral xray complaining of leg pain and heel numbness Code(s): R42 - DIZZINESS AND GIDDINESS (3) Hyperlipidemia Assessment/Plan: statin lipid profile Code(s): E78.5 - HYPERLIPIDEMIA, UNSPECIFIED
[2018-05-02 11:50] LABS: CHOLESTEROL 204 mg/dL (50-200); HDL CHOLESTEROL 37 mg/dL (40-60); TRIGLYCERIDES 188 mg/dL (0-150)
--- NOTE | 2018-05-02 12:02 | ECHO ---
Name: MADELINE VAUGHN Exam:Adult Echocardiogram Study Date: 05/02/2018 08:45 AM Age: 52 yrs Reason For Study: DIZZINESS PRE SYNCOPE Height: 70 in Weight: 215 lb BSA: 2.2 m2 MMode/2D Measurements & Calculations IVSd: 0.98 cm Ao root diam: 3.1 cm LVIDd: 4.7 cm LA dimension: 3.8 cm LVIDs: 3.1 cm LVPWd: 1.0 cm EDV(Teich): 100.9 ml LVOT diam: 2.3 cm ESV(Teich): 38.2 ml TAPSE: 2.6 cm Doppler Measurements & Calculations MV E max josiah: 69.1 cm/sec Ao V2 max: 186.2 cm/sec MV A max josiah: 77.5 cm/sec Ao max P.9 mmHg MV E/A: 0.89 Ao V2 mean: 125.9 cm/sec MV dec time: 0.21 sec Ao mean P.2 mmHg Ao V2 VTI: 30.6 cm NEAL(I,D): 2.8 cm2 NEAL(V,D): 2.5 cm2 LV V1 max P.4 mmHg MR max josiah: 272.8 cm/sec LV V1 mean P.2 mmHg MR max P.8 mmHg LV V1 max: 116.5 cm/sec LV V1 mean: 81.5 cm/sec LV V1 VTI: 21.2 cm SV(LVOT): 85.4 ml TR max josiah: 237.5 cm/sec TR max P.6 mmHg PI end-d josiah: 150.0 cm/sec Med Peak E' Josiah: 4.5 cm/sec Med E/e': 15.5 Lat Peak E' Josiah: 4.3 cm/sec Lat E/e': 16.0 Left Ventricle Left ventricular systolic function is normal. Ejection Fraction = 60-65%. Right Ventricle The right ventricle is normal in size and function. Atria Normal left and right atrial size and function. Mitral Valve The mitral valve is normal in structure and function. There is no mitral valve stenosis. There is mil d mitral regurgitation. Tricuspid Valve The tricuspid valve is normal in structure and function. There is mild tricuspid regurgitation. Aortic Valve The aortic valve opens well. No hemodynamically significant valvular aortic stenosis. No aortic regur gitation is present. Pulmonic Valve The pulmonic valve is not well seen, but is grossly normal. There is no pulmonic valvular stenosis. M ild pulmonic valvular regurgitation. Great Vessels The aortic root is normal size. Pericardium/Pleura There is no pericardial effusion. Interpretation Summary Left ventricular systolic function is normal. Ejection Fraction = 60-65%. The right ventricle is normal in size and function. There is mild mitral regurgitation. There is mild tricuspid regurgitation. There is no pericardial effusion. MD Soto *Lisa 05/02/2018 12:02 PM
--- NOTE | 2018-05-02 13:54 | CONSULT ---
Consult Consult Specialty:: endocrine Referred by:: pcp Reason for Consultation:: hyperlipidemia - History of Present Illness Chief Complaint: passed out off ballance History of Present Illness: Mr. Swain is a 52 yo male w/ pmh of cad,andres, HTN, HLD, Prior stents (LAD 2013 ) on asa only, who was advised malinda present since 1 month history of intermittent dizziness with occasional muscle cramping. Patient became concerned when he had a syncopal episode last week.he has long history andres, chronic fatigue,weight gain,difficulty with sleep, had several episodes nearly passed out,denies fever cough,chest pain,or trauma - History Source History Provided By: Patient - Past Medical History Cardio/Vascular: Yes: CAD, HTN, Hyperlipdemia, [place] - Past Surgical History Past Surgical History: Yes: None - Alcohol/Substance Use Hx Alcohol Use: No (4 beers on fridays and saturdays) History of Substance Use: reports: None - Smoking History Smoking history: Current every day smoker Have you smoked in the past 12 months: Yes Aproximately how many cigarettes per day: 10 (2PPD x 29yrs, now down to 1/4PPD x 4yrs) - Social History ADL: Independent 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 Home Medications - Allergies Allergies/Adverse Reactions: Allergies Allergy/AdvReac Type Severity Reaction Status Date / Time No Known Allergies Allergy Verified 05/01/18 15:34 - Home Medications Home Medications: Ambulatory Orders Aspirin [ASA -] 81 mg PO DAILY 03/12/16 Losartan/Hydrochlorothiazide [Losartan-Hctz 100-12.5 mg Tab] 1 each PO DAILY Metoprolol Succinate [Toprol Xl] 25 mg PO DAILY 05/01/18 Simvastatin [Zocor -] 40 mg PO DAILY 05/01/18 Family Disease History - Family Disease History Family Disease History: Other: Grandparent (Maternal GM (74) HLD, [place]), Father (unknown), Mother (alive (74) HTN, HLD), Sister (alive (51) s/p renal txplt) Review of Systems - Review of Systems Constitutional: reports: Lethargy, Weakness Eyes: reports: No Symptoms HENT: reports: Nasal Congestion Neck: reports: Swollen Glands Respiratory: reports: No Symptoms Gastrointestinal: reports: Bloating, Indigestion Genitourinary: reports: No Symptoms Musculoskeletal: reports: Muscle Weakness Integumentary: reports: No Symptoms Neurological: reports: Dizziness, Headache, Weakness Endocrine: reports: Unexplained Weight Gain Hematology/Lymphatic: reports: No Symptoms Physical Exam Vital Signs: Vital Signs Temperature 97.8 F 05/01/18 15:30 Pulse Rate 85 05/02/18 10:25 Respiratory Rate 16 05/02/18 10:25 Blood Pressure 148/94 05/02/18 10:25 O2 Sat by Pulse Oximetry (%) 96 05/02/18 10:25 Constitutional: Yes: Calm Eyes: Yes: EOM Intact HENT: Yes: Normocephalic Neck: Yes: Trachea Midline Cardiovascular: Yes: Regular Rate and Rhythm Respiratory: Yes: CTA Bilaterally Gastrointestinal: Yes: Normal Bowel Sounds ...Rectal Exam: Yes: Deferred Renal/: Yes: WNL Breast(s): Yes: WNL Musculoskeletal: Yes: Muscle Pain, Muscle Weakness Extremities: Yes: WNL Edema: No Neurological: Yes: Alert, Oriented, Weakness Labs: CBC, BMP 05/02/18 05:15 05/02/18 05:15 Problem List - Problems (1) CAD (coronary artery disease) Code(s): I25.10 - ATHSCL HEART DISEASE OF [place] CORONARY ARTERY W/O ANG PCTRS (2) Dizziness Code(s): R42 - DIZZINESS AND GIDDINESS (3) ACS (acute coronary syndrome) Code(s): I24.9 - ACUTE ISCHEMIC HEART DISEASE, UNSPECIFIED (4) Hyperlipidemia Code(s): E78.5 - HYPERLIPIDEMIA, UNSPECIFIED Assessment/Plan Current Active Problems CAD (coronary artery disease) (Acute) Dizziness (Acute) hyperlipidemia ashd hypertension andres sleep apnea thyroiditis Laboratory Results - last 24 hr 05/01/18 05/01/18 05/01/18 15:47 15:51 15:51 WBC 7.0 RBC 5.02 Hgb 15.3 Hct 43.9 MCV 87.3 MCH 30.5 MCHC 34.9 RDW 13.5 Plt Count 210 MPV 8.5 Absolute Neuts (auto) 4.8 Neutrophils % 68.0 Lymphocytes % 19.9 Monocytes % 7.7 Eosinophils % 3.8 Basophils % 0.6 Nucleated RBC % 0 PT with INR 10.50 INR 0.89 Sodium 136 Potassium 3.9 Chloride 104 Carbon Dioxide 26 Anion Gap 5 L BUN 24 H Creatinine 1.1 Creat Clearance w eGFR 70.02 Random Glucose 86 Calcium 9.2 Phosphorus Magnesium Total Bilirubin 0.4 AST 16 ALT 49 Alkaline Phosphatase 95 Creatine Kinase 207 Creatine Kinase Index 1.4 CK-MB (CK-2) 3.1 Troponin I < 0.02 Total Protein 6.8 Albumin 3.6 Triglycerides Cholesterol Total LDL Cholesterol HDL Cholesterol Resin T3 Uptake Urine Color Urine Appearance Urine pH Ur Specific [place] Urine Protein Urine Glucose (UA) Urine Ketones Urine Blood Urine Nitrite Urine Bilirubin Urine Urobilinogen Ur Leukocyte Esterase 05/01/18 05/02/18 05/02/18 18:24 05:15 05:15 WBC 5.3 RBC 4.94 Hgb 14.8 Hct 43.0 MCV 86.9 MCH 30.0 MCHC 34.5 RDW 13.5 Plt Count 193 MPV 8.4 Absolute Neuts (auto) 3.6 Neutrophils % 66.9 Lymphocytes % 20.1 Monocytes % 7.0 Eosinophils % 5.4 H Basophils % 0.6 Nucleated RBC % 0 PT with INR INR Sodium 139 Potassium 4.1 Chloride 107 Carbon Dioxide 26 Anion Gap 5 L BUN 17 Creatinine 0.9 Creat Clearance w eGFR 88.27 Random Glucose 119 H Calcium 8.5 Phosphorus 4.2 Magnesium 2.2 Total Bilirubin AST ALT Alkaline Phosphatase Creatine Kinase Creatine Kinase Index CK-MB (CK-2) Troponin I < 0.02 Total Protein Albumin Triglycerides 188 H Cholesterol 204 H Total LDL Cholesterol 135 H HDL Cholesterol 37 L Resin T3 Uptake 31.5 L Urine Color Ltyellow Urine Appearance Clear Urine pH 5.0 Ur Specific [place] 1.015 Urine Protein Negative Urine Glucose (UA) Negative Urine Ketones Negative Urine Blood Negative Urine Nitrite Negative Urine Bilirubin Negative Urine Urobilinogen Negative Ur Leukocyte Esterase Negative 05/02/18 12:50 WBC RBC Hgb Hct MCV MCH MCHC RDW Plt Count MPV Absolute Neuts (auto) Neutrophils % Lymphocytes % Monocytes % Eosinophils % Basophils % Nucleated RBC % PT with INR INR Sodium Potassium Chloride Carbon Dioxide Anion Gap BUN Creatinine Creat Clearance w eGFR Random Glucose Calcium Phosphorus Magnesium Total Bilirubin AST ALT Alkaline Phosphatase Creatine Kinase 115 Creatine Kinase Index CK-MB (CK-2) Troponin I < 0.02 Total Protein Albumin Triglycerides Cholesterol Total LDL Cholesterol HDL Cholesterol Resin T3 Uptake Urine Color Urine Appearance Urine pH Ur Specific [place] Urine Protein Urine Glucose (UA) Urine Ketones Urine Blood Urine Nitrite Urine Bilirubin Urine Urobilinogen Ur Leukocyte Esterase Abnormal Lab Results 05/01/18 05/02/18 05/02/18 15:51 05:15 05:15 Eosinophils % 5.4 H Anion Gap 5 L 5 L BUN 24 H Random Glucose 119 H Triglycerides 188 H Cholesterol 204 H Total LDL Cholesterol 135 H HDL Cholesterol 37 L Resin T3 Uptake 31.5 L plan: smoke cessation lipitor 40mg daily diet nutrition ent andres ct chest copd
--- NOTE | 2018-05-02 15:53 | CON.PULM ---
Consult Consult Specialty:: PULM/SLEEP/CCM Referred by:: RYAN Reason for Consultation:: OSAS / COPD - History of Present Illness Chief Complaint: Syncope History of Present Illness: 52 M, 1/2 PPD smoker, previously diagnosed OSAS (had 3 total sleep studies: results are not known; was prescribed CPAP but has not used in years), CAD, PCI , HTN, and HLD. Admitted via the ER due to 1 month history of intermittent dizziness with occasional muscle cramping. Apparently had a syncopal event about1 week ago and was advised admission. No recent travel history or sick contacts. No fever or chills. He does have loud snoring with witnessed apneas. He does experience Excessive Daytime Sleepiness (EDS). CT: Non-specific nodular densities x 4: dominant 11mm x 6 mm. Non-calcified. Not spiculated. Appearance is more like scar tissue / atelectasis. No prior imaging is available for review. - History Source History Provided By: Patient Limitations to Obtaining History: No Limitations - Past Medical History Cardio/Vascular: Yes: CAD, HTN, Hyperlipdemia, [place] Pulmonary: Yes: Bronchitis, COPD, Sleep Apnea. 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 Home Medications - Allergies Allergies/Adverse Reactions: Allergies Allergy/AdvReac Type Severity Reaction Status Date / Time No Known Allergies Allergy Verified 05/01/18 15:34 - Home Medications Home Medications: Ambulatory Orders Aspirin [ASA -] 81 mg PO DAILY 03/12/16 Losartan/Hydrochlorothiazide [Losartan-Hctz 100-12.5 mg Tab] 1 each PO DAILY Metoprolol Succinate [Toprol Xl] 25 mg PO DAILY 05/01/18 Simvastatin [Zocor -] 40 mg PO DAILY 05/01/18 Family Disease History - Family Disease History Family Disease History: Other: Grandparent (Maternal GM (74) HLD, [place]), Father (unknown), Mother (alive (74) HTN, HLD), Sister (alive (51) s/p renal txplt) Review of Systems - Review of Systems Constitutional: reports: Malaise. denies: Chills, Fever, Night Sweats, Unintentional Wgt. Loss Eyes: reports: No Symptoms HENT: reports: No Symptoms Neck: reports: No Symptoms, Other Cardiovascular: denies: Chest Pain, Edema, Palpitations, Shortness of Breath Respiratory: reports: Cough, Snoring. denies: Hemoptysis, SOB, SOB on Exertion , Wheezing Gastrointestinal: reports: No Symptoms Genitourinary: reports: No Symptoms Breasts: reports: No Symptoms Reported Musculoskeletal: reports: No Symptoms Integumentary: reports: No Symptoms Neurological: reports: Dizziness, Headache, Syncope. denies: Seizure, Tremors, Unsteady Gait Endocrine: reports: No Symptoms Hematology/Lymphatic: reports: No Symptoms Psychiatric: reports: No Symptoms Physical Exam Vital Sings: Vital Signs Temperature 98.0 F 05/02/18 15:07 Pulse Rate 82 05/02/18 15:07 Respiratory Rate 18 05/02/18 15:07 Blood Pressure 128/57 L 05/02/18 15:07 O2 Sat by Pulse Oximetry (%) 97 05/02/18 15:07 Constitutional: Yes: No Distress, Calm, Obese Eyes: Yes: Conjunctiva Clear, EOM Intact HENT: Yes: Atraumatic, Normocephalic Neck: Yes: Supple, Trachea Midline Cardiovascular: Yes: Regular Rate and Rhythm Respiratory: Yes: CTA Bilaterally, Cough. No: Accessory Muscle Use, Rales, Rhonchi, SOB, SOB on Exertion, Stridor, Tachypnea, Wheezes ...Inspection: Yes: WNL ...Clubbing: No Gastrointestinal: Yes: Normal Bowel Sounds, Soft Renal/: Yes: WNL Musculoskeletal: Yes: WNL Extremities: Yes: WNL Edema: No Peripheral Pulses WNL: Yes Integumentary: Yes: WNL Neurological: Yes: WNL, Alert, Oriented ...Motor Strength: WNL Psychiatric: Yes: WNL, Alert, Oriented Labs: CBC, BMP 05/02/18 05:15 05/02/18 05:15 Imaging - Results Chest X-ray: Report Reviewed, Image Reviewed Cat Scan: Report Reviewed, Image Reviewed Problem List - Problems (1) ANGELICA (obstructive sleep apnea) Code(s): G47.33 - OBSTRUCTIVE SLEEP APNEA (ADULT) (PEDIATRIC) (2) Smoker Code(s): F17.200 - NICOTINE DEPENDENCE, UNSPECIFIED, UNCOMPLICATED (3) Obesity Code(s): E66.9 - OBESITY, UNSPECIFIED (4) COPD (chronic obstructive pulmonary disease) Code(s): J44.9 - CHRONIC OBSTRUCTIVE PULMONARY DISEASE, UNSPECIFIED (5) CAD (coronary artery disease) Code(s): I25.10 - ATHSCL HEART DISEASE OF [place] CORONARY ARTERY W/O ANG PCTRS (6) Dizziness Code(s): R42 - DIZZINESS AND GIDDINESS (7) Hyperlipidemia Code(s): E78.5 - HYPERLIPIDEMIA, UNSPECIFIED Assessment/Plan Smoking cessation counseled. Has never tried any smoking cessation intervention but he was supplied with material. Will require repeat sleep testing and re-titration. Will follow as an outpatient. Will need outpatient PFTs. According to the updated Fleischner Guidelines, a repeat CT chest can be obtained in 3 to 6 months and then 12 to 18 months for follow up. Syncope workup as ordered. Will follow as an outpatient. I gave the patient my contact information to schedule a follow up. Thank you. Dr Fajardo
--- NOTE | 2018-05-02 16:19 | CONSULT ---
Consult - text type - Consultation Consultation Note: NEUROLOGY CONSULT APPRECIATED: Events reviewed and discussed with staff. Dr. Byrd and Alley at bedside. 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 Maintained on: ASA 81, Losartan/HCTZ, Metoprolol, Simvastatin Here after reports of 3 weeks of brief, "dizziness," described as lightheadedness, without warning and, more recently, associated with chest pains He describes these events occurring multiple times a day, mostly while driving and lasting approximately 3 seconds and resolving. He notes a separate occasion while getting out of a hot shower where he felt sudden "dizziness" and imbalance , causing him to "faint" and fall without LOC. No diaphoresis, palor, flushing, SOB, spinning vertigo, tinnitus, etc. He saw Dr. Powell who found elevated BP and increased BP and cholesterol meds. Review of systems is significant for history of "hamstring pulls" attributed to sports, with more recent exacerbation involving R "calf tightness" and residual numbness in the back of his R heel. He reports sleep is good despite history of sleep apnea, and he usually sleeps in a recliner. He denies personal or family history of headache or seizures. CT head (reviewed): Calcified vertebrobasilar system. Microvascular changes Carotid Duplex doppler: (Not yet reported): Moderate left ICA plaque. minimal scattered right ICA mural plaques KIMBERLEE: BP 140/90 without orthostatic changes. P80s. Cor reg. No bruit. Neg SLR. Neg Joel's. NEURO: Mentation/Speech: Nl. CNII-CNXII: EOM intact and full amaya appreciated. Few beats, transient, conjugate, downbeating, nystagmus Motor: No drift. Strength normal. Reflexes normal and symmetric. Toes downgoing. Coordination: No FTN dystaxia. Sensation: Normal to vibration. Romberg - Gait: Normal stride. Pt can walk on heels and toes without difficulty. Impression: 1. Brief recurrent lightheadedness. R/o cardiac arrhythmia 2. Near Syncope - Possibly on a vasovagal basis but would also consider a more prolonged arrhythmia. Suggest: Check Orthostatic BP's MRI of brain (C-) and MR Angio of Intracranial arteries (R/O Basilar artery stenosis). Agree with cardio and telemetry. Stress test prior to D/C? Cardiovascular protection with ASA, statin. Consider addition of Plavix Systolic BP control 120-130s Encourage weight loss, smoking cessation Thank you very much, Daniel Washington MD
[2018-05-02] MEDS ORDERED: ATORVASTATIN CA 20 MG TABLET (FP) PO SCH (22:00)
[2018-05-02] MEDS ORDERED: ATORVASTATIN CA 80 MG TABLET (FP) PO SCH (22:00)
[2018-05-03 07:59] VITALS: TEMP 97.7
--- NOTE | 2018-05-03 09:03 | PN ---
Progress Note, Physician Chief Complaint: Coverage for [employer]: Sinus rolanda during sleep hours Denies CP, SOB, palpitations. Echo normal Carotid US no sig obstruction Seen by Neuro: MRI/A brain planned. - Current Medication List Current Medications: Active Medications Acetaminophen (Tylenol -) 650 mg PO Q6H PRN PRN Reason: FEVER Aspirin (Asa -) 81 mg PO DAILY [facility] Last Admin: 05/02/18 10:26 Dose: 81 mg Atorvastatin Calcium (Lipitor -) 80 mg PO HS [facility] Last Admin: 05/02/18 21:21 Dose: 80 mg Docusate Sodium (Colace -) 100 mg PO Q8H PRN PRN Reason: CONSTIPATION Losartan Potassium (Cozaar -) 100 mg PO DAILY [facility] Last Admin: 05/02/18 10:26 Dose: 100 mg Metoprolol Succinate (Toprol Xl -) 25 mg PO DAILY [facility] Last Admin: 05/02/18 10:26 Dose: 25 mg Senna (Senna -) 2 tab PO HS PRN PRN Reason: CONSTIPATION - Objective Vital Signs: Vital Signs Temperature 97.7 F 05/03/18 07:58 Pulse Rate 75 05/03/18 07:58 Respiratory Rate 16 05/03/18 07:58 Blood Pressure 124/88 05/03/18 07:58 O2 Sat by Pulse Oximetry (%) 97 05/03/18 03:00 Constitutional: Yes: No Distress, Calm Cardiovascular: Yes: Regular Rate and Rhythm Respiratory: Yes: CTA Bilaterally Gastrointestinal: Yes: Soft Edema: No Neurological: Yes: Alert, Oriented Labs: CBC, BMP 05/02/18 05:15 05/02/18 05:15 INR, PTT INR 0.89 (0.83-1.09) 05/01/18 15:51 - ....Imaging MRI: Pending EKG: Image Reviewed Assessment/Plan IMP: CAD s/p PCI Dizziness REC: 1. Echo and Carotid US WNL 2. Nocturnal bradycardia: consider outpt w/u sleep apnea; no significant arrhythmias noted thus far to explain sx 3. Neuro eval pending including MRI/A Will follow. Coverage for [employer]
[2018-05-03] MEDS: LOSARTAN POTASSIUM 50 MG TABLET (FP) PO SCH (09:11)
[2018-05-03] MEDS: metoPROLOL SUCCINATE 25 MG TAB.SR.24H (FP) PO SCH (09:11)
[2018-05-03] MEDS: ASPIRIN 81 MG CHEWABLE TABLETS PO SCH (09:11)
[2018-05-03 14:13] VITALS: BP 126/72; PULSE 73
--- NOTE | 2018-05-03 14:24 | CON.ENT ---
Consult Consult Specialty:: ENT Referred by:: Dr. Powell - History of Present Illness Chief Complaint: obstructive sleep apnea History of Present Illness: 52 yo M with sig h HTN, CAD, s/p stents, hyperlipidemia COPD, long hx smoking known ANGELICA, reports having a stress test 3 yrs ago under care of Dr. Goff, had urgent angioplasty and stents ([place]) dizziness, has had Neurology consultation Dr. Washington, MRI brain and MRA brain performed, dizziness is more recent/acute. lightheaded, NOT spinning denies ear pain or hearing loss also hx obstructive sleep apnea syndrome: previously diagnosed OSAS (had 3 total sleep studies: results are not known; was prescribed CPAP but has not used in years), reports pt has loud snoring and apnea, irregular breathing, wakes pt, he changes position. wakes tired, always tired, usually can work through day and not fall asleep if he keeps busy. but if sits down, could easily fall asleep , reports pt falls asleep very quickly every night. hx nasal and sinus problems, had septoplasty many years ago by Dr. Cardenas, reports ongoing nasal problems since surgery, can smell normally, no bleeding denies sinus pain or pressure now - History Source History Provided By: Patient, Family Member, Medical Record - Past Medical History Cardio/Vascular: Yes: CAD, HTN, Hyperlipdemia, [place] Pulmonary: Yes: Bronchitis, COPD, Sleep Apnea. 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 Home Medications - Allergies Allergies/Adverse Reactions: Allergies Allergy/AdvReac Type Severity Reaction Status Date / Time No Known Allergies Allergy Verified 05/01/18 15:34 - Home Medications Home Medications: Ambulatory Orders Aspirin [ASA -] 81 mg PO DAILY 03/12/16 Losartan/Hydrochlorothiazide [Losartan-Hctz 100-12.5 mg Tab] 1 each PO DAILY Metoprolol Succinate [Toprol Xl] 25 mg PO DAILY 05/01/18 Simvastatin [Zocor -] 40 mg PO DAILY 05/01/18 Family Disease History - Family Disease History Family Disease History: Other: Grandparent (Maternal GM (74) HLD, [place]), Father (unknown), Mother (alive (74) HTN, HLD), Sister (alive (51) s/p renal txplt) Physical Exam-ENT Vital Signs: Vital Signs Temperature 97.7 F 05/03/18 14:12 Pulse Rate 73 05/03/18 14:12 Respiratory Rate 16 05/03/18 14:12 Blood Pressure 126/72 05/03/18 14:12 O2 Sat by Pulse Oximetry (%) 99 05/03/18 11:00 Constitutional: Yes: Well Nourished, No Distress, Calm Head: Yes: WNL Face: Yes: WNL, Other (no tenderness over frontal or maxillary sinuses) Eyes: Yes: WNL Nose: Yes: Septum Deviated, Other (nasal endoscopy (topical lidocaine/ phenylephrine) nasal septum intact, mild deviation, inferior turbinates enlarged , right middle turbinate edematous, right superior meatus, superior turbinate and SE recess not well visualized; left middle turbinate WNL, middle meatus thick yellow mucus, superior turbinate, superior meatus and SE recess not well visualized.) Nasal Passage: Yes: Other (edema) Oral/Pharynx: Yes: Other (lips, teeth, hard palate WNL, tongue position 3, oropharynx: elongated soft palate with very edematous uvula, tonsils not significantly enlarged.) Outer Ear: Yes: WNL Ear Canal: Yes: WNL, Cerumen (minimal flaky cerumen right, non-obstructive , hearing WNL) Tympanic Membrane: Yes: WNL Neck: Yes: WNL, Other (no mass node, salivary and thyroid glands unremarkable, thick neck) Imaging - Results Cat Scan: Report Reviewed, Image Reviewed (CT head) Ultrasound: Report Reviewed (carotid doppler - no hemodynamically significant stenoses) MRI: Report Reviewed (no lesions, arterial pattern WNL +air fluid level left maxillary sinus c/w acute sinusitis also some thickening of left frontal sinus, ethmoid sinuses), Image Reviewed Problem List - Problems (1) Acute maxillary sinusitis Assessment/Plan: air fluid level identified in left maxillary sinus on MRI hx rhinitis, prior septoplasty Recommend: oral antibiotic x 10 days: Augmentin or cefuroxime nasal saline spray, ordered to office after discharge for follow-up Code(s): J01.00 - ACUTE MAXILLARY SINUSITIS, UNSPECIFIED (2) Dizziness Assessment/Plan: acute dizziness, lightheadedness, NOT spinning or movement Cardiology and Neurology consultations noted has had EKG, carotid doppler, MRI brain and MRA brain Recommend: continue present management and work-up to office after discharge for outpatient follow-up Code(s): R42 - DIZZINESS AND GIDDINESS (3) ANGELICA (obstructive sleep apnea) Assessment/Plan: known sleep apnea, prior PSG's and prior CPAP trial (did not tolerate, has not used x years) has ongoing sigtnificant symptoms of ANGELICA - loud snoring, witnessed apnea, daytime somnolence, short sleep latency exam shows nasal and oropharyngeal levels of obstruction pt reports that prior sleep test showed bradycardia Recommend: concur with Dr. Fajardo that pt needs a current PSG and retitration of CPAP ( split night study) strongly advise pt retry CPAP weight loss, smoking cessation will also help do not recommend surgical intervention at this time as not optimized on CPAP and cardiovasular risks of anesthesia and upper airway surgery Thank you for consultation, Ghulam Stephens MD FACS Code(s): G47.33 - OBSTRUCTIVE SLEEP APNEA (ADULT) (PEDIATRIC)
--- NOTE | 2018-05-03 14:46 | PN ---
Progress Note (short form) - Note Progress Note: PULMONARY Denies shortness of breath, cough or wheezing. Vital Signs Period Temp Pulse Resp BP Sys/Hanna Pulse Ox Last 24 Hr 97.5 F-98.1 F 65-107 16-18 116-138/53-90 97-99 Gen: NAD at rest Heart: RRR Lung: decreased breath sounds at the bases Abd: soft, nontender Ext: no edema CBC, BMP 05/02/18 05:15 05/02/18 05:15 Active Medications Acetaminophen (Tylenol -) 650 mg PO Q6H PRN PRN Reason: FEVER Aspirin (Asa -) 81 mg PO DAILY [facility] Last Admin: 05/03/18 09:11 Dose: 81 mg Atorvastatin Calcium (Lipitor -) 80 mg PO HS [facility] Last Admin: 05/02/18 21:21 Dose: 80 mg Docusate Sodium (Colace -) 100 mg PO Q8H PRN PRN Reason: CONSTIPATION Losartan Potassium (Cozaar -) 100 mg PO DAILY [facility] Last Admin: 05/03/18 09:11 Dose: 100 mg Metoprolol Succinate (Toprol Xl -) 25 mg PO DAILY [facility] Last Admin: 05/03/18 09:11 Dose: 25 mg Senna (Senna -) 2 tab PO HS PRN PRN Reason: CONSTIPATION A/P Obstructive Sleep Apnea CAD s/p PCI Lung Nodule Dizziness - neuro work up in progress - outpt f/u of lung nodule - outpt PSG - DVT prophylaxis
--- NOTE | 2018-05-03 15:27 | PN ---
Progress Note, Physician Chief Complaint: Dizziness History of Present Illness: MRI/MRA brain done- unremarkable Seen by ENT-recommended abx for 10 days for sinusitis that may be causing his symptoms - Current Medication List Current Medications: Active Medications Acetaminophen (Tylenol -) 650 mg PO Q6H PRN PRN Reason: FEVER Amoxicillin/Clavulanate Potassium (Augmentin - 875mg Tablet) 1 tab PO BID@0800, 1730 [facility] Aspirin (Asa -) 81 mg PO DAILY [facility] Last Admin: 05/03/18 09:11 Dose: 81 mg Atorvastatin Calcium (Lipitor -) 80 mg PO HS [facility] Last Admin: 05/02/18 21:21 Dose: 80 mg Docusate Sodium (Colace -) 100 mg PO Q8H PRN PRN Reason: CONSTIPATION Losartan Potassium (Cozaar -) 100 mg PO DAILY [facility] Last Admin: 05/03/18 09:11 Dose: 100 mg Metoprolol Succinate (Toprol Xl -) 25 mg PO DAILY [facility] Last Admin: 05/03/18 09:11 Dose: 25 mg Senna (Senna -) 2 tab PO HS PRN PRN Reason: CONSTIPATION Sodium Chloride ([place]al [place] -) 2 spray NS BID [facility] - Objective Vital Signs: Vital Signs Temperature 97.7 F 05/03/18 14:12 Pulse Rate 73 05/03/18 14:12 Respiratory Rate 16 05/03/18 14:12 Blood Pressure 126/72 05/03/18 14:12 O2 Sat by Pulse Oximetry (%) 99 05/03/18 11:00 Constitutional: Yes: Well Nourished, No Distress, Calm Cardiovascular: Yes: Regular Rate and Rhythm Respiratory: Yes: Regular Gastrointestinal: Yes: Normal Bowel Sounds, Soft Musculoskeletal: Yes: WNL Extremities: Yes: WNL Edema: No Peripheral Pulses WNL: Yes Neurological: Yes: Alert, Oriented Psychiatric: Yes: Alert, Oriented Labs: CBC, BMP 05/02/18 05:15 05/02/18 05:15 INR, PTT INR 0.89 (0.83-1.09) 05/01/18 15:51 Problem List - Problems (1) CAD (coronary artery disease) Assessment/Plan: -Seen by Cardiology- no intervention recommended at this time Code(s): I25.10 - ATHSCL HEART DISEASE OF [place] CORONARY ARTERY W/O ANG PCTRS (2) Dizziness Assessment/Plan: -improved -oral antibiotic x 10 days: Augmentin-sent to pharmacy Code(s): R42 - DIZZINESS AND GIDDINESS (3) ANGELICA (obstructive sleep apnea) Assessment/Plan: -Sleep studies outpatient Code(s): G47.33 - OBSTRUCTIVE SLEEP APNEA (ADULT) (PEDIATRIC) (4) Obesity Code(s): E66.9 - OBESITY, UNSPECIFIED (5) Hyperlipidemia Assessment/Plan: -LDL at 135, -Atorvastatin 80 mg po HS Code(s): E78.5 - HYPERLIPIDEMIA, UNSPECIFIED (6) Acute maxillary sinusitis Assessment/Plan: -Seen by ENT -oral antibiotic x 10 days: Augmentin or cefuroxime Code(s): J01.00 - ACUTE MAXILLARY SINUSITIS, UNSPECIFIED (7) Pulmonary nodules Assessment/Plan: -CT chest reviewed -Seen by Pulmonary -According to the updated Fleischner Guidelines, a repeat CT chest can be obtained in 3 to 6 months and then 12 to 18 months for follow up Code(s): R91.8 - OTHER NONSPECIFIC ABNORMAL FINDING OF LUNG FIELD Assessment/Plan See problem list D/C home
[2018-05-03] MEDS ORDERED: AMOX TR/POT CLAV 875MG/125MG TABLETS (FP) PO SCH (17:30)
[2018-05-03] MEDS ORDERED: SODIUM CHLORIDE NASAL SPRAY 44 ML BOTTLE NS SCH (22:00)
== END 2018-05-03 16:56 | disposition home or self-care (01) ==
LOC: JER 14:59 → JERBED 19:43 → J4S 05-02 15:12
PROVIDERS: ADMIT Family Medicine; ATTEND Family Medicine
DX: R42 Dizziness and giddiness (principal); R55 Syncope and collapse; I10 Essential (primary) hypertension; E78.5 Hyperlipidemia, unspecified; F17.210 Nicotine dependence, cigarettes, uncomplicated; I25.2 Old myocardial infarction; I25.10 Atherosclerotic heart disease of native coronary artery without angina pectoris; I24.9 Acute ischemic heart disease, unspecified; G47.33 Obstructive sleep apnea (adult) (pediatric); J01.00 Acute maxillary sinusitis, unspecified; R91.8 Other nonspecific abnormal finding of lung field; E66.9 Obesity, unspecified; Z68.32 Body mass index [BMI] 32.0-32.9, adult; Z79.84 Long term (current) use of oral hypoglycemic drugs; Z95.5 Presence of coronary angioplasty implant and graft
CPT/HCPCS: 36415; 70450-TC; 70544-TC; 70551-TC; 71046-TC-FY; 71250-TC; 72100-TC-FY; 80048; 80053; 80061; 81003; 82550; 82553; 83721; 83735; 84100; 84479; 84484; 85025; 85610; 93005; 93010; 93306-TC; 93880-TC; 97161-GP; 99285-25; G0378